=== PATIENT | male | born 1965 | race Caucasian/White ===

== ENCOUNTER → 2018-04-03 | Outpatient (CLI) | payer OTHER ==
[~2018-04-03] MED LIST: BUDESUS NAE; FEXO1TAB46 PO; LPT10 PO; OMEP20TA PO; [UNRECOGNIZED DRUG - CODE] NAE
== END | disposition home or self-care (01) ==
LOC: C.LAB1850 10:53
PROVIDERS: ATTEND Internal Medicine Pulmonary Disease
DX: Z88.0 Allergy status to penicillin (principal)